=== PATIENT | female | born 1995 | race Caucasian/White ===

== ENCOUNTER 2020-06-05 03:25 | Emergency (ER) | payer SELFPAY ==
[2020-06-05] MEDS ORDERED: Lorazepam 1 MG TAB ONE (03:44)
[2020-06-05 04:20] LABS: Anion Gap 15 mmol/L (10-20); BUN (Urea Nitrogen) 15 mg/dL (7.0-18.7); Calc. Creatinine Clearance 0 mL/min (70-130); Carbon Dioxide 25 mmol/L (22-29); Chloride 103 mmol/L (98-107); Estimated GFR-MDRD Greater than 90; Glucose 80 mg/dL (70-105); Potassium 3.1 mmol/L (3.5-5.1); Sodium 140 mmol/L (136-145)
[2020-06-05] MEDS ORDERED: Potassium Chloride 20 MEQ TAB ONE (04:44)
== END 2020-06-05 04:52 | disposition home or self-care (01) ==
LOC: ERS 03:25
DX: E87.6 Hypokalemia (principal); R25.9 Unspecified abnormal involuntary movements; F31.9 Bipolar disorder, unspecified; Z79.899 Other long term (current) drug therapy
CPT/HCPCS: 36415; 80048; 99284

== ENCOUNTER → 2020-06-28 | Emergency (ER) | payer SELFPAY | LOC: ERS 15:06 | DX: Z53.21 Procedure and treatment not carried out due to patient leaving prior to being seen by health care provider (principal) ==